=== PATIENT | male | born 1975 | race Caucasian/White ===

== ENCOUNTER 2020-07-15 12:23 | Emergency (ER) | payer BC ==
[2020-07-15 12:33] VITALS: BP 144/84
[2020-07-15] MEDS ORDERED: CLINDAMYCIN 600 MG/D5W RTU 600 MG/50 ML RTUPB IV ONE (12:45)
--- NOTE | 2020-07-15 12:48 | ER Document Report ---
ED Medical Screen (RME) - General Chief Complaint: Arm Pain Stated Complaint: ABSCESS/RIGHT ARM,NEEDLE INJURY Time Seen by Provider: 07/15/20 12:41 Notes: HPI: 44-year-old male presenting for red hot areas both antecubital regions after possibly missing the vein while injecting methamphetamine 3 nights ago. No prior history of skin infections. Complains of pain to both antecubital regions PHYSICAL EXAMINATION: Erythema noted to both antecubital regions measuring approximately 6 cm diameter proximal to the antecubital region on the right and measuring approximately 4 cm distal to the antecubital region on the left. There are injection sites noted, no definitive induration or fluctuance I have greeted and performed a rapid initial assessment of this patient. A comprehensive ED assessment and evaluation of the patient, analysis of test results and completion of medical decision making process will be conducted by an additional ED providers. TRAVEL OUTSIDE OF THE [place] IN LAST 30 DAYS: No - Related Data Allergies/Adverse Reactions: No Known Allergies Allergy (Verified 07/15/20 12:40) Past Medical History - Past Medical History Cardiac Medical History: Reports: Hx Hypertension - Immunizations Hx Diphtheria, Pertussis, Tetanus Vaccination: No Physical Exam - Vital signs Vitals: Temp Pulse Resp BP Pulse Ox 98.1 F 92 20 144/84 H 98 07/15/20 12:30 07/15/20 12:30 07/15/20 12:30 07/15/20 12:30 07/15/20 12:30 Course - Vital Signs Vital signs: Temp Pulse Resp BP Pulse Ox 98.1 F 92 20 144/84 H 98 07/15/20 12:30 07/15/20 12:30 07/15/20 12:30 07/15/20 12:30 07/15/20 12:30
[2020-07-15] MEDS ORDERED: KETOROLAC TROMETHAMINE INJ/PF 30 MG/1 ML SDV IV ONE (12:49)
[2020-07-15 13:41] LABS: ABSOLUTE BASOPHILS # (AUTO) 0.1 10^3/uL (0.0-0.2); ABSOLUTE EOSINOPHILS # (AUTO) 0.3 10^3/uL (0.0-0.6); ABSOLUTE LYMPHOCYTES (AUTO) 1.8 10^3/uL (0.5-4.7); ABSOLUTE NEUT (AUTO) 8.1 10^3/uL (1.7-8.2); BASOPHILS % (AUTO) 0.6 % (0-2); EOSINOPHILS % (AUTO) 2.7 % (0-6); HEMATOCRIT 39.1 % (37.9-51.0); HEMOGLOBIN 13.7 g/dL (13.5-17.0); LYMPHOCYTES % (AUTO) 15.8 % (13-45); MEAN CORPUSCULAR HEMOGLOBIN 32.5 pg (27.0-33.4); MEAN CORPUSCULAR HGB CONC 35.1 g/dL (32.0-36.0); MEAN CORPUSCULAR VOLUME 93 fl (80-97); MONOCYTES % (AUTO) 9.1 % (3-13); PLATELET COUNT 239 10^3/uL (150-450); RED BLOOD COUNT 4.21 10^6/uL (4.35-5.55); SEGMENTED NEUTROPHILS % (AUTO) 71.8 % (42-78); TOTAL CELLS COUNTED % (AUTO) 100 %; WHITE BLOOD COUNT 11.2 10^3/uL (4.0-10.5)
--- NOTE | 2020-07-15 13:43 | ER Document Report ---
ED General - General Chief Complaint: Arm Pain Stated Complaint: ABSCESS/RIGHT ARM,NEEDLE INJURY Time Seen by Provider: 07/15/20 12:41 Mode of Arrival: Ambulatory Information source: Patient Notes: This 44-year-old man presents to the emergency department with a history of right antecubital erythema or redness that extends into the proximal forearm and distal upper arm. Currently he is attempted to inject IV drugs into his arm a few days ago and has since then developed redness and swelling with pain. He notes that he has similar occurrence in the left arm, is not quite as severe. He denies fever or prior history of similar episodes. TRAVEL OUTSIDE OF THE [place] IN LAST 30 DAYS: No - Related Data Allergies/Adverse Reactions: No Known Allergies Allergy (Verified 07/15/20 12:40) Past Medical History - Social History Smoking Status: Current Every Day Smoker Family History: Reviewed & Not Pertinent - Past Medical History Cardiac Medical History: Reports: Hx Hypertension - Immunizations Hx Diphtheria, Pertussis, Tetanus Vaccination: No Review of Systems - Review of Systems Notes: Constitutional: Negative for fever. HENT: Negative for sore throat. Eyes: Negative for visual changes. Cardiovascular: Negative for chest pain. Respiratory: Negative for shortness of breath. Gastrointestinal: Negative for abdominal pain, vomiting or diarrhea. Genitourinary: Negative for dysuria. Musculoskeletal: Negative for back pain. Skin: + Bilateral antecubital areas of erythema Neurological: Negative for headaches, weakness or numbness. 10 point ROS negative except as marked above and in HPI. Physical Exam - Vital signs Vitals: Temp Pulse Resp BP Pulse Ox 98.1 F 92 20 144/84 H 98 07/15/20 12:30 07/15/20 12:30 07/15/20 12:30 07/15/20 12:30 07/15/20 12:30 - Notes Notes: PHYSICAL EXAMINATION: Physical Exam: General: Well-nourished well-developed in no acute distress HEENT: NC/AT, pupils equal round and reactive to light, MM moist,nares clear, oropharynx clear, airway patent Neck: supple, no adenopathy, no masses. Good range of motion Lungs: clear, no wheezing, no rales no rhonchi CVS: Regular rate and rhythm no murmur gallop or rub Abdomen: Soft, active, nontender, no masses, no hepatosplenomegaly Ext: No edema, clubbing or cyanosis. Neuro: Alert and responsive, moving all 4 extremities on command, cranial nerves intact, no focal findings Skin: No areas of erythema in the antecubital region right greater than left. No fluctuance no focal mass. PSYCH: Normal mood, normal affect. Course - Re-evaluation Re-evalutation: 07/15/20 14:50 The patient was given IV clindamycin in the emergency department and a blood culture was performed. White count is 11.2, he is afebrile. I have discussed outpatient management with the patient explained that using warm compresses and taking the medication, clindamycin as prescribed should be helpful. He is also encouraged to follow-up with his primary care doctor as needed. The patient acknowledges understanding of this plan and is in agreement. - Vital Signs Vital signs: Temp Pulse Resp BP Pulse Ox 98.1 F 92 20 144/84 H 98 07/15/20 12:30 07/15/20 12:30 07/15/20 12:30 07/15/20 12:30 07/15/20 12:30 - Laboratory Result Diagrams: 07/15/20 13:15 07/15/20 13:15 Laboratory results interpreted by me: 07/15/20 07/15/20 13:15 13:15 WBC 11.2 H RBC 4.21 L Chloride 108 H Glucose 135 H Discharge - Discharge Clinical Impression: Cellulitis of right upper extremity, Cellulitis of left upper extremity, IV drug abuse Condition: Good Disposition: HOME, SELF-CARE Instructions: Cellulitis ([facility]) Additional Instructions: You were seen in the emergency department today with infection in the injection site both upper arms. You are encouraged to discontinue using IV drugs as any attempt injections may spread infection further. You may use warm compresses to the area of swelling and redness. Please take the antibiotic clindamycin as prescribed. Follow-up with your doctor as needed. If your symptoms are worsening, if you develop fever, or if there are other symptoms of worsening infection you may return to the emergency department for recheck. HOME CARE INSTRUCTIONS & INFORMATION: Thank you for choosing us for your medical needs. We hope you're satisfied with the care you received. After you leave, you must properly care for your problem and, at the same time, observe it s progress. Any condition can change. Some illnesses can change rapidly over hours or days. If your condition worsens, return to the Emergency Department or see your physician promptly. ABOUT YOUR X-RAYS AND EKG'S: If you had an EKG or X-rays taken, they have been read by the Emergency Physician. The X-rays and EKG's will also be read by a Radiologist or Thread Weaver within 24 hours. If discrepancies are noted, you will be notified by telephone. Please be certain the ED has a correct telephone number & address where you can be reached. Also, realize that some fractures or abnormalities do not show up on initial X-rays. If your symptoms continue, see your physician. ABOUT YOUR LABORATORY TEST: If you had laboratory tests, the results have been reviewed by the Emergency Physician. Some test results (for example cultures) may not be available for several days. You will be contacted if any test result shows you need additional treatment. Please be certain the ED has a correct telephone number and address where you can be reached. ABOUT YOUR MEDICATIONS: You will receive instructions on how to take your medicine on the prescription label you receive. Additional information may be provided by the Pharmacy. If you have questions afterwards, call the ED for clarification or further instructions. Some prescribed medications may cause drowsiness. Do not perform tasks such as driving a car or operating machinery without consulting your Pharmacist. If you feel you need a refill of pain medication, your condition will need re-evaluation. Please do not call for a refill of any medication. ABOUT YOUR SIGNATURE: Signature of this document acknowledges to followin. Understanding that you received emergency treatment and that you may be released before al medical problems are known or treated. Please be certain the ED has a correct phone number & address where you can be reached. 2. Acknowledgement that you will arrange for follow-up care as recommended. 3. Authorization for the Emergency Physician to provide information to your follow-up Physician in order to maximize your care. AT ANY TIME, IF YOUR SYMPTOMS CHANGE SIGNIFICANTLY OR WORSEN OR YOU DEVELOP NEW SYMPTOMS, RETURN TO THE EMERGENCY DEPARTMENT IMMEDIATELY FOR RE-EVALUATION. OUR GOAL IS TO PROVIDE EXCELLENT MEDICAL CARE! WE HOPE THAT WE HAVE MET YOUR EXPECTATIONS DURING YOUR EMERGENCY DEPARTMENT VISIT AND THAT YOU FEEL YOU HAVE RECEIVED EXCELLENT CARE! Prescriptions: Clindamycin HCl 300 mg PO TID #30 capsule
[2020-07-15 14:06] LABS: ALBUMIN 3.9 g/dL (3.5-5.0); ALKALINE PHOSPHATASE 71 U/L (38-126); ANION GAP 9 (5-19); ASPARTATE AMINO TRANSFERASE 42 U/L (17-59); BILIRUBIN,DIRECT 0.2 mg/dL (0.0-0.4); BILIRUBIN,TOTAL 0.5 mg/dL (0.2-1.3); BLOOD UREA NITROGEN 15 mg/dL (7-20); CALCIUM 8.9 mg/dL (8.4-10.2); CARBON DIOXIDE 22 mmol/L (22-30); CHLORIDE 108 mmol/L (98-107); GLUCOSE 135 mg/dL (75-110); POTASSIUM 4.2 mmol/L (3.6-5.0); TOTAL PROTEIN 6.4 g/dL (6.3-8.2)
== END 2020-07-15 15:22 | disposition home or self-care (01) ==
LOC: ER 12:23
DX: L03.113 Cellulitis of right upper limb (principal); L03.114 Cellulitis of left upper limb; F19.10 Other psychoactive substance abuse, uncomplicated; F17.200 Nicotine dependence, unspecified, uncomplicated; I10 Essential (primary) hypertension
CPT/HCPCS: 99284; 96375; 96365; 36415; 87040; 85025; 80053; J1885